=== PATIENT | female | born 1995 | race Hispanic/Latino ===

== ENCOUNTER 2018-01-03 22:27 | Emergency (ER) | payer SELFPAY | END 2018-01-04 01:17 | disposition home or self-care (01) | LOC: ERS 22:27 | DX: S61.101A Unspecified open wound of right thumb with damage to nail, initial encounter (principal); W22.8XXA Striking against or struck by other objects, initial encounter | CPT/HCPCS: 99283 ==

== ENCOUNTER 2018-09-19 17:09 | Emergency (ER) | payer SELFPAY ==
[2018-09-19 18:19] LABS: Pregnancy Test - Urine (BHCG) Indeterminate (Negative); Pregu Control Background? CLEAR/WHITE (CLR/WHITE); Pregu Control Bar Appear? YES (CONTROL BAR); Specific Gravity 1.008 (1.002-1.036)
[2018-09-19 18:22] LABS: #Basophils 0.1 thou/uL (0.0-0.2); #Lymphocytes 1.7 thou/uL (1.20-3.40); #Monocytes 0.6 thou/uL (0.11-0.59); #Neutrophils 6.4 thou/uL (1.40-6.50); %Basophils 0.9 % (0.0-1.0); %Eosinophils 0.4 % (0.0-10.0); %Lymphocytes 18.7 % (21.0-51.0); %Monocytes 6.9 % (0.0-10.0); %Neutrophils 73.1 % (42.0-75.0); Hemoglobin 12.7 g/dL (12.0-16.0); Mean Corpuscular HGB CONC 32.9 g/dL (32.0-36.0); Mean Corpuscular Hemoglobin 28.6 pg (27.0-31.0); Mean Corpuscular Volume 87.1 fL (78.0-98.0); Mean Platelet Volume 8.9 fL (7.4-10.4); Platelet Count 201 thou/uL (130-400); RBC Distribution Width 11.8 % (11.5-14.5); Red Blood Cell (RBC) Count 4.44 mill/uL (4.20-5.40); White Blood Cell (WBC) Count 8.8 thou/uL (4.8-10.8)
[2018-09-19 18:45] LABS: Bilirubin Negative (Negative); Blood, Urine Moderate (Negative); Clarity CLEAR (Clear); Glucose, Urine (Dipstick) Negative (Negative); Leukocyte Negative (Negative); Nitrite Negative (Negative); Protein, Urine (Dipstick) Negative (Neg-Trace); Specific Gravity, Urine 1.008 (1.002-1.036); Urobilinogen 0.2 mg/dL (0.2-1.0); pH, Urine 6.5 (5.0-9.0)
[2018-09-19 18:48] LABS: Bacteria/HPF 4+ HPF (None Seen); Hyaline Casts/LPF 0-3 HYALINE CAST LPF (0-3 Hyaline); Squamous Epithelial None Seen HPF (0-3); WBC/HPF 0-3 HPF (0-3)
--- NOTE | 2018-09-19 22:11 | ULT ---
PELVIC ULTRASOUND INCLUDING TRANSABDOMINAL, TRANSVAGINAL, AND VASCULAR DUPLEX WITH COLOR AND SPECTRAL DOPPLER IMAGIN09/19/18 HISTORY: Vaginal bleeding, HCG of 268. The uterus is retroflexed and measures 12.5 x 4.3 x 4.1 cm. Endometrium is 0.9 cm. Right ovary measur es 2.3 x 3.1 x 3.0 cm. The left ovary measures 1.3 x 2.0 x 2.2 cm. Small amount of cul-de-sac fluid a nd left adnexal fluid. Vascular flow is documented to both ovaries. No evidence for an intrauterine g estational sac or pole. IMPRESSION: No evidence for an intrauterine gestational sac. No convincing ultrasound evidence for an ectopic pre gnancy. Continued followup serum HCG is recommended. Possibilities include that of a very, very early , missed AB, or early ectopic . Followup HCG should help considerably in further e valuating this. POS: JIMI
[2018-09-22 12:26] LABS: Chlamydia by PCR Not Detected (NotDetected); GC by PCR Not Detected (NotDetected)
== END 2018-09-19 21:30 | disposition home or self-care (01) ==
LOC: ERS 17:09
DX: O03.4 Incomplete spontaneous abortion without complication (principal)
CPT/HCPCS: 36415; 76856; 81003; 81015; 81025; 84702; 85025; 87077; 87086; 87186; 87480; 87491; 87510; 87591; 87660

== ENCOUNTER 2018-09-22 16:00 | Emergency (ER) | payer SELFPAY ==
[2018-09-22 16:30] LABS: #Basophils 0.1 thou/uL (0.0-0.2); #Eosinphils 0.1 thou/uL (0.0-0.7); #Lymphocytes 1.7 thou/uL (1.20-3.40); #Monocytes 0.6 thou/uL (0.11-0.59); #Neutrophils 4.8 thou/uL (1.40-6.50); %Eosinophils 0.7 % (0.0-10.0); %Lymphocytes 23.2 % (21.0-51.0); %Monocytes 8.2 % (0.0-10.0); %Neutrophils 66.9 % (42.0-75.0); Mean Corpuscular HGB CONC 34.4 g/dL (32.0-36.0); Mean Corpuscular Hemoglobin 29.9 pg (27.0-31.0); Mean Corpuscular Volume 86.8 fL (78.0-98.0); Mean Platelet Volume 8.9 fL (7.4-10.4); Platelet Count 188 thou/uL (130-400); RBC Distribution Width 11.6 % (11.5-14.5); Red Blood Cell (RBC) Count 4.34 mill/uL (4.20-5.40); White Blood Cell (WBC) Count 7.1 thou/uL (4.8-10.8)
== END 2018-09-22 18:55 | disposition home or self-care (01) ==
LOC: ERS 16:00
DX: O03.9 Complete or unspecified spontaneous abortion without complication (principal)
CPT/HCPCS: 36415; 84702; 85025; 86850; 86900; 86901; 99283

== ENCOUNTER 2020-03-23 22:45 | Emergency (ER) | payer SELFPAY ==
[2020-03-23 23:08] LABS: Bilirubin Negative (Negative); Blood, Urine Trace (Negative); Clarity Clear (Clear); Glucose, Urine (Dipstick) Normal (Negative); Ketone, Urine Negative (Negative); Leukocyte Negative Leu/uL (Negative); Nitrite Negative (Negative); Protein, Urine (Dipstick) Negative (Neg-Trace); RBC/HPF 0-3 HPF (0-3); Specific Gravity, Urine 1.017 (1.002-1.036); Squamous Epithelial 0-3 HPF (0-3); Urobilinogen Normal mg/dL (Less than 2); WBC/HPF 0-3 HPF (0-3)
[2020-03-23 23:09] LABS: Bacteria/HPF 1+ HPF (None Seen)
[2020-03-23] MEDS ORDERED: Acetaminophen 325 MG TAB ONE (23:33)
--- NOTE | 2020-03-24 07:02 | ULT ---
TRANSABDOMINAL AND TRANSVAGINAL PELVIC ULTRASOUND: Date: 03/23/2020 INDICATION: History of pelvic cramping and 6 week . TECHNIQUE: Valdes scale, color Doppler, and spectral Doppler images were obtained of the pelvis via transabdominal and transvaginal approach. FINDINGS: There is a single, live intrauterine gestation with cardiac activity noted at 90 BPM. pole and yolk sac identified. There is a small subchorionic hemorrhage seen along the anterior margin of the g estational sac. This occupies less than 25% of the gestational sac circumference. There is a right ovarian corpus luteal cyst measuring 3.0 cm. There is normal blood flow to both ovar ies. Mild free fluid is seen within the cul-de-sac of [place]. [place]-rump length measures 3.8 mm, giving an estimated gestational age of 6 weeks and 0 days. Yolk sa c measured 4.3 mm. Mean sac diameter is 1.16 cm, giving an estimated gestational age of 6 weeks and 0 days. The average gestational age based on biometrics is 6 weeks and 0 days. Estimated due date is . IMPRESSION: 1. Single, live intrauterine gestation, with size and dates as above. 2. Small subchorionic hemorrhage along the anterior margin of the gestational sac. Recommend continu ed clinical and sonographic follow-up. 3. Right ovarian corpus luteal cyst measuring 3.0 cm. POS: BH
[2020-03-24 21:08] LABS: Chlamydia by PCR Not Detected (NotDetected); GC by PCR Not Detected (NotDetected)
== END 2020-03-24 01:57 | disposition home or self-care (01) ==
LOC: ERS 22:45
DX: O99.89 Other specified diseases and conditions complicating pregnancy, childbirth and the puerperium (principal); N89.8 Other specified noninflammatory disorders of vagina; Z3A.01 Less than 8 weeks gestation of pregnancy
CPT/HCPCS: 36415; 76856; 81003; 81015; 84702; 87480; 87491; 87510; 87591; 87660

== ENCOUNTER 2020-07-02 07:37 | Outpatient (CLI) | payer OTHER ==
--- NOTE | 2020-07-02 08:38 | ULT ---
ULTRASOUND OBSTETRICAL COMPLETE: DATE: 07/02/2020 HISTORY: ICD-10: "Z 34.82, encounter for supervision of other normal , second trimester" 24-year-old female. "Comments: Complete anatomy, size and dates, cervical length" FINDINGS: Maternal adnexa: Not visualized. number: jones lie: Cephalic Maternal cervix: 4 cm. Closed. Placenta: Posterior. No placenta previa. Amniotic fluid volume: KAREN = 18 cm heart rate: 129 bpm The following anatomy is visualized, with no evidence of anomalies: Head, cerebellum, lateral ventricles, four-chamber heart, stomach, kidneys, cord insertion, bladder, cervical spine, thoracic spine, lumbar spine, sacrum, nose and lips, upper extremities, lower extremities, and three-vessel cord. biometry: Biparietal diameter (BPD): 5.0 cm 21 w 1 d Head circumference (HC): 18.0 cm 20 w 4 d Abdominal circumference (AC): 15.0 cm 20 w 2 d Femur length (FL): 3.4 cm 20 w 6 d Average ultrasound age (AUA): 20 w 5 d Estimated date of delivery (NISSA): 11/14/2020 Estimated weight (EFW): 358 g +/- 52 g IMPRESSION: 1) Live 2nd trimester intrauterine gestation. 2) Estimated gestational age of 20 weeks, 5 days 3) cephalic lie. 4) no anatomic abnormality identified.
== END 2020-07-02 07:38 | disposition home or self-care (01) ==
LOC: BICULT 07:37
PROVIDERS: ATTEND Family Medicine
DX: Z34.82 Encounter for supervision of other normal pregnancy, second trimester (principal); Z3A.20 20 weeks gestation of pregnancy
CPT/HCPCS: 76805

== ENCOUNTER 2022-03-31 08:50 | Outpatient (CLI) | payer OTHER | END 2022-03-31 08:51 | disposition home or self-care (01) | LOC: BICULT 08:50 | PROVIDERS: ATTEND Family Medicine | DX: Z34.82 Encounter for supervision of other normal pregnancy, second trimester (principal); Z3A.21 21 weeks gestation of pregnancy | CPT/HCPCS: 76805 ==

== ENCOUNTER 2023-01-23 16:33 | Emergency (ER) | payer MEDICAID, SELFPAY ==
[2023-01-23 17:35] LABS: #Monocytes 0.3 thou/uL (0.11-0.59); #Neutrophils 6.6 thou/uL (1.40-6.50); %Basophils 0.1 % (0.0-1.0); %Lymphocytes 6.5 % (21.0-51.0); %Monocytes 3.9 % (0.0-10.0); %Neutrophils 89.2 % (42.0-75.0); Hemoglobin 12.6 g/dL (12.0-16.0); Mean Corpuscular HGB CONC 31.7 g/dL (32.0-36.0); Mean Corpuscular Hemoglobin 28.1 pg (27.0-31.0); Mean Corpuscular Volume 88.4 fl (78.0-98.0); Mean Platelet Volume 10.8 fL (7.4-10.4); Platelet Count 147 10x3/uL (130-400); RBC Distribution Width 12.9 % (11.5-14.5); Red Blood Cell (RBC) Count 4.49 mill/uL (4.20-5.40); White Blood Cell (WBC) Count 7.4 10x3/uL (4.8-10.8)
[2023-01-23 17:57] LABS: ALT (SGPT) 19 U/L (8-55); AST (SGOT) 22 U/L (5-34); Alkaline Phosphatase 87 U/L (40-110); Anion Gap 13 mmol/L (10-20); BUN (Urea Nitrogen) 16 mg/dL (7.0-18.7); Bilirubin, Total 0.9 mg/dL (0.2-1.2); CK (CPK) 94 U/L (29-168); Calc. Creatinine Clearance 0 mL/min (70-130); Calcium 8.4 mg/dL (7.8-10.44); Carbon Dioxide 19 mmol/L (22-29); Chloride 110 mmol/L (98-107); Estimated GFR 109; Globulin 3.1 g/dL (2.4-3.5); Glucose 88 mg/dL (70-105); Lipase 16 U/L (8-78); Magnesium 1.3 mg/dL (1.6-2.6); Potassium 2.8 mmol/L (3.5-5.1); Protein, Total 7.1 g/dL (6.0-8.3); Sodium 139 mmol/L (136-145)
[2023-01-23] MEDS ORDERED: Magnesium 2 GM/50 ML BAG (IN WATER) ONE (18:19)
[2023-01-23] MEDS ORDERED: Potassium Chloride 20 MEQ TAB ONE (18:19)
[2023-01-23 19:17] LABS: BHCG - Serum Negative (NEGATIVE); Pregs Control Background? CLEAR/WHITE (CLR/WHITE); Pregs Control Bar Appear? YES (CONTROL BAR)
[2023-01-23 19:21] LABS: Bacteria/HPF None Seen HPF (None Seen); Bilirubin Negative (Negative); Blood, Urine Negative (Negative); Clarity Clear (Clear); Glucose, Urine (Dipstick) Normal (Negative); Ketone, Urine Trace mg/dL (Negative); Leukocyte 75 Leu/uL (Negative); Nitrite Negative (Negative); Protein, Urine (Dipstick) Negative (Neg-Trace); RBC/HPF 0-3 HPF (0-3); Specific Gravity, Urine 1.023 (1.002-1.036); Urobilinogen Normal mg/dL (Less than 2); WBC/HPF 0-3 HPF (0-3); pH, Urine 6.5 (5.0-9.0)
[2023-01-23 19:38] LABS: SARS-CoV-2 NAA Rapid Test Not Detected (NotDetected)
== END 2023-01-23 19:55 | disposition home or self-care (01) ==
LOC: ERS 16:33
DX: K52.9 Noninfective gastroenteritis and colitis, unspecified (principal); E87.6 Hypokalemia; E83.42 Hypomagnesemia; Z20.822 Contact with and (suspected) exposure to COVID-19
CPT/HCPCS: 36415; 36416; 80053; 81003; 81015; 82550; 83690; 83735; 84703; 85025; 96365; J3475